=== PATIENT | female | born 1995 | race Caucasian/White ===

== ENCOUNTER 2022-11-24 19:12 | Day surgery (SDC) | payer SELFPAY ==
[2022-11-24 19:34] VITALS: BMI 36.1
[2022-11-24] MEDS ORDERED: Lorazepam 2 MG/ML VIAL SLOW IVP PRN (19:40)
[2022-11-24] MEDS ORDERED: Calcium Gluc 4.6 MEQ/10 ML (100 MG/ML) SLOW IVP PRN (19:40)
[2022-11-24] MEDS ORDERED: hydrALAZINE 20 MG/ML VIAL SLOW IVP PRN (19:40)
[2022-11-24 20:38] LABS: Hematocrit 36.7 % (34.9-44.5); Hemoglobin 12.6 g/dL (12.0-15.5); Mean Corpuscular HGB CONC 34.3 g/dL (32.0-36.0); Mean Corpuscular Hemoglobin 30.5 pg (27.0-33.0); Mean Corpuscular Volume 88.9 fl (81.6-98.3); Mean Platelet Volume 10.2 fl (7.4-10.4); Platelet Count 237 10x3/uL (150-450); Red Blood Cell (RBC) Count 4.13 10x6/uL (3.90-5.03); White Blood Cell (WBC) Count 10.7 10x3/uL (3.5-10.5)
[2022-11-24 20:39] LABS: #Basophils 0.1 10x3/uL (0.0-0.2); #Eosinphils 0.1 10x3/uL (0.0-0.5); #Monocytes 0.9 10x3/uL (0.0-1.1); #Neutrophils 7.6 10x3/uL (1.5-8.4); %Basophils 0.5 % (0.0-2.0); %Lymphocytes 17.6 % (18.0-47.0); %Monocytes 8.6 % (0.0-10.0); %Neutrophils 71.5 % (40.0-75.0)
[2022-11-24 21:06] LABS: ALT (SGPT) 9 U/L (8-55); AST (SGOT) 18 U/L (5-34); Albumin 3.2 g/dL (3.5-5.0); Alkaline Phosphatase 101 U/L (40-110); Anion Gap 18 mmol/L (10-20); BUN (Urea Nitrogen) 9 mg/dL (7.0-18.7); Bilirubin, Total Less than 0.2 mg/dL (0.2-1.2); Calc. Creatinine Clearance 240 mL/min (70-130); Calcium 9.2 mg/dL (7.8-10.44); Carbon Dioxide 16 mmol/L (22-29); Chloride 108 mmol/L (98-107); Estimated GFR 127; Globulin 2.6 g/dL (2.4-3.5); Glucose 108 mg/dL (70-105); Potassium 4.2 mmol/L (3.5-5.1); Protein, Total 5.8 g/dL (6.0-8.3); Sodium 138 mmol/L (136-145)
[2022-11-24 22:36] LABS: Creatinine, Urine 94.66 mg/dL (47-110)
== END 2022-11-24 22:20 | disposition home or self-care (01) ==
LOC: CSHLD/OP 19:12
PROVIDERS: ATTEND Obstetrics & Gynecology
DX: O13.3 Gestational [pregnancy-induced] hypertension without significant proteinuria, third trimester (principal); O14.03 Mild to moderate pre-eclampsia, third trimester; Z3A.33 33 weeks gestation of pregnancy; Z79.899 Other long term (current) drug therapy
CPT/HCPCS: 36415; 80053; 82570; 84156; 85025; 99283

== ENCOUNTER 2022-11-26 11:38 | Inpatient (IN) | payer OTHER, SELFPAY ==
[2022-11-26 12:23] VITALS: BMI 36.1
[2022-11-26] MEDS ORDERED: hydrALAZINE 20 MG/ML VIAL SLOW IVP PRN ×2 (12:35→17:10)
[2022-11-26] MEDS ORDERED: Acetaminophen 500 MG TAB PO SCH (13:15)
[2022-11-26 13:33] LABS: ALT (SGPT) 10 U/L (8-55); AST (SGOT) 14 U/L (5-34); Albumin 3.3 g/dL (3.5-5.0); Alkaline Phosphatase 100 U/L (40-110); Anion Gap 14 mmol/L (10-20); BUN (Urea Nitrogen) 10 mg/dL (7.0-18.7); Bilirubin, Total 0.2 mg/dL (0.2-1.2); Calc. Creatinine Clearance 253 mL/min (70-130); Calcium 9.7 mg/dL (7.8-10.44); Carbon Dioxide 21 mmol/L (22-29); Chloride 105 mmol/L (98-107); Estimated GFR 129; Globulin 2.8 g/dL (2.4-3.5); Glucose 93 mg/dL (70-105); Potassium 4.3 mmol/L (3.5-5.1); Protein, Total 6.1 g/dL (6.0-8.3); Sodium 136 mmol/L (136-145)
[2022-11-26 13:40] LABS: #Basophils 0.1 10x3/uL (0.0-0.2); #Eosinphils 0.1 10x3/uL (0.0-0.5); #Monocytes 0.6 10x3/uL (0.0-1.1); #Neutrophils 7.1 10x3/uL (1.5-8.4); %Basophils 0.5 % (0.0-2.0); %Eosinophils 0.7 % (0.0-6.0); %Lymphocytes 15.3 % (18.0-47.0); %Monocytes 6.8 % (0.0-10.0); %Neutrophils 75.7 % (40.0-75.0); Hemoglobin 12.9 g/dL (12.0-15.5); Mean Corpuscular HGB CONC 33.9 g/dL (32.0-36.0); Mean Corpuscular Hemoglobin 29.9 pg (27.0-33.0); Mean Corpuscular Volume 88.2 fl (81.6-98.3); Mean Platelet Volume 9.8 fl (7.4-10.4); Platelet Count 247 10x3/uL (150-450); RBC Distribution Width 13.2 % (11.5-14.5); Red Blood Cell (RBC) Count 4.31 10x6/uL (3.90-5.03); White Blood Cell (WBC) Count 9.4 10x3/uL (3.5-10.5)
[2022-11-26 14:56] LABS: Creatinine, Urine 30.67 mg/dL (47-110)
[2022-11-26] MEDS ORDERED: Ondansetron PF 4 MG/2 ML Vial IVP PRN (17:10)
[2022-11-26] MEDS ORDERED: Zolpidem Tartrate 5 MG TAB PO PRN (17:10)
[2022-11-26] MEDS ORDERED: Promethazine HCl 25 MG/ML VIAL IM PRN (17:10)
[2022-11-26] MEDS: Labetalol HCl 200 MG TAB PO SCH (20:20)
[2022-11-27] MEDS ORDERED: Magnesium Sulfate 20 gm/500 ml 20 GM/500 ML BAG ONE (00:51)
[2022-11-27] MEDS ORDERED: Ibuprofen 800 MG TAB PO PRN (00:52)
[2022-11-27] MEDS ORDERED: Calcium Gluc 4.6 MEQ/10 ML (100 MG/ML) SLOW IVP PRN (00:52)
[2022-11-27] MEDS ORDERED: Lorazepam 2 MG/ML VIAL SLOW IVP PRN (00:52)
[2022-11-27] MEDS ORDERED: Lidocaine 1% (PF) 30 ML VIAL SC PRN (00:52)
[2022-11-27] MEDS ORDERED: hydrALAZINE 20 MG/ML VIAL SLOW IVP PRN (00:54)
[2022-11-27] MEDS ORDERED: Labetalol HCl 100 MG/20 ML VIAL SLOW IVP PRN (00:54)
[2022-11-27] MEDS ORDERED: Misoprostol 100 MCG TAB VAG SCH (01:00)
[2022-11-27] MEDS ORDERED: Betamet Acet/Betamet Na Ph 30 MG/5 ML VIAL IM SCH (01:00)
[2022-11-27] MEDS ORDERED: NS w/ Oxytocin 30 units 500 ML IV SCH (01:00)
[2022-11-27] MEDS ORDERED: Acetaminophen 500 MG TAB PO PRN (04:40)
[2022-11-27] MEDS ORDERED: fentaNYL 50 mcg/mL 1 mL Vial ONE (08:59)
[2022-11-27] MEDS ORDERED: Morphine PF 10 MG/10 ML VIAL ONE (08:59)
[2022-11-27] MEDS ORDERED: PHENYLEPHRINE-NS 100 MCG/ML 10 ML SYRINGE ONE (08:59)
[2022-11-27] MEDS ORDERED: Oxytocin 10 UNITS/ML VIAL ONE ×2 (08:59→10:38)
[2022-11-27] MEDS ORDERED: Dexamethasone 4 mg/ml Vial ONE (09:54)
[2022-11-27] MEDS ORDERED: CEFAZOLIN 2 GM VIAL ONE (09:54)
[2022-11-27] MEDS ORDERED: Ondansetron PF 4 MG/2 ML Vial ONE (09:54)
[2022-11-27] MEDS: Magnesium Sulfate 20 gm/500 ml 20 GM/500 ML BAG IVPB SCH ×2 (09:59→21:08)
[2022-11-27] MEDS ORDERED: Fentanyl 100 MCG/2 ML VIAL SLOW IVP PRN (11:23)
[2022-11-27] MEDS ORDERED: Promethazine HCl 25 MG SUPP PR PRN (11:23)
[2022-11-27] MEDS ORDERED: Meperidine HCl/PF 25 MG/ML VIAL SLOW IVP PRN (11:23)
[2022-11-27] MEDS ORDERED: Naloxone HCl 0.4 mg/ml Vial IVP PRN ×2 (11:23)
[2022-11-27] MEDS ORDERED: Ondansetron PF 4 MG/2 ML Vial IVP PRN (11:23)
[2022-11-27] MEDS ORDERED: HYDROmorphone 2 MG/ML VIAL SLOW IVP PRN (11:23)
[2022-11-27] MEDS ORDERED: Naloxone HCl 0.4 mg/ml Vial IV PRN (11:23)
[2022-11-27] MEDS ORDERED: Moisturizing Cream (Eucerin) 113 GM JAR TOP PRN (11:23)
[2022-11-27] MEDS ORDERED: diphenhydrAMINE 50 MG/ML VIAL IVP PRN (11:23)
[2022-11-27] MEDS ORDERED: Ondansetron HCl/PF 4 MG/2 ML Vial IVP PRN (11:23)
[2022-11-27] MEDS ORDERED: Promethazine HCl 25 MG/ML VIAL IM PRN (11:23)
[2022-11-27] MEDS ORDERED: Communication Order-Pharmacy FS SCH (11:30)
[2022-11-27] MEDS ORDERED: Ketorolac Tromethamine 30 MG/ML VIAL IVP SCH (11:30)
[2022-11-27 11:48] LABS: RapidComm Collect By CBN; pH (Cord, venous) 7.292 (7.250-7.350)
[2022-11-27 11:49] LABS: RapidComm Collect By CBN
[2022-11-27] MEDS: Ketorolac Tromethamine 30 MG/ML VIAL IVP PRN ×2 (14:33→21:15)
[2022-11-27] MEDS: Labetalol HCl 200 MG TAB PO SCH ×2 (19:14→20:04)
[2022-11-28] MEDS: Ketorolac Tromethamine 30 MG/ML VIAL IVP PRN (07:21)
[2022-11-28] MEDS: Labetalol HCl 200 MG TAB PO SCH ×2 (09:30→20:17)
[2022-11-28] MEDS ORDERED: Boostrix 0.5 ML (Tdap) VIAL (>/=7 yrs of age) IM ONE (11:09)
[2022-11-28] MEDS ORDERED: Lanolin Ointment 7 GM TUBE TOP PRN (11:09)
[2022-11-28] MEDS ORDERED: Simethicone Chewable 80 MG TAB PO PRN (11:09)
[2022-11-28] MEDS ORDERED: diphenhydrAMINE 25 MG CAP PO PRN (11:09)
[2022-11-28] MEDS ORDERED: Bisacodyl 10 MG SUPP PR PRN (11:09)
[2022-11-28] MEDS ORDERED: Acetaminophen 325 MG TAB PO PRN (11:09)
[2022-11-28] MEDS ORDERED: hydrALAZINE 20 MG/ML VIAL SLOW IVP PRN (11:09)
[2022-11-28] MEDS ORDERED: Prenatal Vitamin 1 TAB PO SCH (11:15)
[2022-11-28] MEDS ORDERED: Ferrous Sulfate 325 MG TAB PO SCH (11:15)
[2022-11-28] MEDS ORDERED: Docusate 100 MG CAP PO SCH (11:15)
[2022-11-28] MEDS: HYDROcodone/Acetaminophen 5/325 mg Tablet PO PRN ×3 (12:16→22:32)
[2022-11-28] MEDS: Ibuprofen 800 MG TAB PO SCH ×2 (18:14→21:42)
[2022-11-28] MEDS: Docusate 100 MG CAP PO SCH (21:42)
[2022-11-28] MEDS: Ferrous Sulfate 325 MG TAB PO SCH (22:30)
[2022-11-29 04:44] LABS: Hematocrit 35.2 % (34.9-44.5); Hemoglobin 11.5 g/dL (12.0-15.5); Mean Corpuscular HGB CONC 32.7 g/dL (32.0-36.0); Mean Corpuscular Hemoglobin 29.6 pg (27.0-33.0); Mean Corpuscular Volume 90.7 fl (81.6-98.3); Mean Platelet Volume 9.9 fl (7.4-10.4); Platelet Count 193 10x3/uL (150-450); RBC Distribution Width 13.5 % (11.5-14.5); Red Blood Cell (RBC) Count 3.88 10x6/uL (3.90-5.03); White Blood Cell (WBC) Count 7.9 10x3/uL (3.5-10.5)
[2022-11-29] MEDS: Ibuprofen 800 MG TAB PO SCH ×3 (05:05→21:43)
[2022-11-29] MEDS: HYDROcodone/Acetaminophen 5/325 mg Tablet PO PRN ×2 (05:06→08:25)
[2022-11-29] MEDS: Docusate 100 MG CAP PO SCH ×2 (08:22→20:34)
[2022-11-29] MEDS: Prenatal Vitamin 1 TAB PO SCH (08:22)
[2022-11-29] MEDS: Labetalol HCl 200 MG TAB PO SCH ×2 (08:22→20:32)
[2022-11-29] MEDS: Ferrous Sulfate 325 MG TAB PO SCH ×2 (12:23→21:43)
[2022-11-30] MEDS: Ibuprofen 800 MG TAB PO SCH ×3 (06:11→21:25)
[2022-11-30] MEDS: Ferrous Sulfate 325 MG TAB PO SCH ×2 (07:34→21:19)
[2022-11-30] MEDS: Prenatal Vitamin 1 TAB PO SCH (08:26)
[2022-11-30] MEDS: Docusate 100 MG CAP PO SCH ×2 (08:27→21:25)
[2022-11-30] MEDS: NIFEdipine XL 30 MG TAB PO SCH (08:28)
[2022-11-30] MEDS: HYDROcodone/Acetaminophen 5/325 mg Tablet PO PRN ×2 (08:38→12:35)
[2022-11-30] MEDS: Labetalol HCl 200 MG TAB PO SCH ×2 (09:57→21:26)
[2022-12-01] MEDS ORDERED: Melatonin 3 MG TAB PO PRN (01:34)
[2022-12-01] MEDS: Ibuprofen 800 MG TAB PO SCH (05:18)
[2022-12-01] MEDS: Docusate 100 MG CAP PO SCH (07:50)
[2022-12-01] MEDS: Prenatal Vitamin 1 TAB PO SCH (07:50)
[2022-12-01] MEDS: NIFEdipine XL 30 MG TAB PO SCH (07:50)
[2022-12-01 07:51] VITALS: BP 133/94
[2022-12-01] MEDS: Labetalol HCl 200 MG TAB PO SCH (07:51)
[2022-12-01 15:30] VITALS: TEMP 97.8
== END 2022-12-01 10:36 | disposition home or self-care (01) | DRG 788 ==
LOC: CSHLD/OP 11:38 → CSHLD 17:38 → OBSVTOIN 11-27 10:00 → CSHPED 11-28 14:30
PROVIDERS: ADMIT Obstetrics & Gynecology; ATTEND Obstetrics & Gynecology
PROC: 10D00Z1 Extraction of Products of Conception, Low, Open Approach (ICD-10-PCS; principal; 2022-11-27)
DX: O32.1XX0 Maternal care for breech presentation, not applicable or unspecified (principal); O14.14 Severe pre-eclampsia complicating childbirth; Z3A.34 34 weeks gestation of pregnancy; Z37.0 Single live birth
CPT/HCPCS: 36415; 51702; 80053; 82570; 82805; 84156; 85025; 85027; 88307; 99283; 99285; J0702; J1100; J1885; J2274; J2405; J2590; J3010; J3475